=== PATIENT | male | born 1965 | race Caucasian/White ===

== ENCOUNTER → 2017-04-13 | Outpatient (CLI) | payer BC | LOC: FIMAGING 12:06 | PROVIDERS: ATTEND Nurse Practitioner | DX: R06.00 Dyspnea, unspecified (principal); R07.81 Pleurodynia; Z85.01 Personal history of malignant neoplasm of esophagus ==

== ENCOUNTER → 2017-12-12 | Outpatient (CLI) | payer BC | LOC: FLAB 16:44 → FIMAGING 16:44 → EDSTATUS 16:46 | PROVIDERS: ATTEND Internal Medicine Hematology & Oncology | DX: R07.81 Pleurodynia (principal); Z87.81 Personal history of (healed) traumatic fracture; C76.0 Malignant neoplasm of head, face and neck ==